=== PATIENT | male | born 1930 | race Caucasian/White ===

== ENCOUNTER 2018-07-24 19:45 | Emergency (ER) | payer MEDICARE ==
[2018-07-24 19:52] VITALS: BP 148/70
--- NOTE | 2018-07-24 19:58 | ED ---
Lower Extremity - HPI Summary HPI Summary: 87 yo male presents to [facility] accompanied by daughter and son in law s/p fall. He tells me that he tripped and fell onto his right knee earlier this evening. He did not hit his head or have LOC. He was able to get to his feet, but has had significant right knee pain since this time. Pain is minimal at rest, but is worse with weight bearing. He was ambulatory without assistance prior to this injury. He is on anticoagulants and family with him today are concerned about this. Pt denies numbness or tingling. - History of Current Complaint Chief Complaint: EDExtremityLower Stated Complaint: FALL, RIGHT KNEE INJURY Time Seen by Provider: 07/24/18 19:58 Hx Obtained From: Patient, Family/Nurse School Mechanism Of Injury: Fall From A Standing Position Severity Initially: Moderate Severity Currently: Moderate Pain Intensity: 7 Pain Scale Used: 0-10 Numeric Timing: Constant - Allergies/Home Medications Allergies/Adverse Reactions: Allergies Allergy/AdvReac Type Severity Reaction Status Date / Time aripiprazole [From Abilify] AdvReac Hallucinati Verified 07/24/18 19:50 ons bupropion [From Wellbutrin] AdvReac Dizziness Verified 07/24/18 19:50 mirtazapine [From Remeron] AdvReac Dizziness Verified 07/24/18 19:50 PMH/Surg Hx/FS Hx/Imm Hx Endocrine/Hematology History: Reports: Hx Anticoagulant Therapy Cardiovascular History: Reports: Hx Hypertension - Surgical History Hx Anesthesia Reactions: No Infectious Disease History: No Infectious Disease History: Denies: Traveled Outside the [place] in Last 30 Days - Family History Known Family History: Positive: Unknown - Social History Occupation: Retired Lives: With Family Alcohol Use: Occasionally Substance Use Type: Reports: None Smoking Status (MU): Never Smoked Tobacco Review of Systems Constitutional: Negative Cardiovascular: Negative Respiratory: Negative Positive: Other - Right knee pain Skin: Negative Neurological: Negative Psychological: Normal All Other Systems Reviewed And Are Negative: Yes Physical Exam - Summary Physical Exam Summary: GENERAL: NAD. WDWN. No pain distress. Sitting comfortably in wheelchair. SKIN: 5mm superficial abrasion overlying lateral right knee. No ecchymosis. CHEST: No accessory muscle use. Breathing comfortably and in no distress. CV: . Pulses intact popliteal, PT, and DP. Cap refill <2seconds MSK: RIGHT KNEE: Mild edema about knee. Mild TTP at tibial plateau. FROM, but pain with active extension. No pain with passive extension. Strength symmetric. No increased laxity. Quad and patellar tendon intact. NEURO: Alert. Sensations intact and symmetric B/L LEs PSYCH: Age appropriate behavior. Triage Information Reviewed: Yes Vital Signs On Initial Exam: Initial Vitals Temp Pulse Resp BP Pulse Ox 97.9 F 54 18 148/70 96 07/24/18 19:50 07/24/18 19:50 07/24/18 19:50 07/24/18 19:50 07/24/18 19:50 Vital Signs Reviewed: Yes Diagnostics - Vital Signs Vital Signs Temp Pulse Resp BP Pulse Ox 07/24/18 19:50 97.9 F 54 18 148/70 96 - Laboratory Lab Statement: Any lab studies that have been ordered have been reviewed, and results considered in the medical decision making process. Lower Extremity Course/Dx - Course Course Of Treatment: XR: No radiologist reading after 1800, therefore wet read by myself is negative for fracture, however there is a questionable transverse deformity on the patella, but this does not appear acute and pt does not have pain here. Discussed with pt and family. Pt was placed in a knee immobilizer and , utilizing a walker, was walked around the ED unit. He was able to accomplish this safely and with minimal pain. Advised to be in knee immobilizer and use walker at all times. Advised to call ED in the morning to obtain official XR report and f/u with Orthopedics if needed. Pt and family voiced understanding and are in agreement with the plan. - Diagnoses Provider Diagnoses: Right knee pain, Fall Discharge - Sign-Out/Discharge Documenting (check all that apply): Patient Departure Patient Received Moderate/Deep Sedation with Procedure: No - Discharge Plan Condition: Stable Disposition: HOME Patient Education Materials: Knee Pain (ED) Referrals: No Primary Care Phys,NOPCP [Primary Care Provider] - Lesly Alex MD [Medical Doctor] - If Needed Additional Instructions: If you develop a fever, shortness of breath, chest pain, new or worsening symptoms - please call your PCP or go to the ED. Your blood pressure was mildly elevated at todays visit. Please see your primary provider within 4 weeks for recheck and re-evaluation. 1) Rest, Ice, and elevate your knee as much as possible 2) The radiologist will review the XR in the morning and we will call you with the report. Currently I have a low suspicion for a fracture. Use the knee immobilizer and use the walker until the official report is determined. - Billing Disposition and Condition Condition: STABLE Disposition: Home
--- NOTE | 2018-07-25 07:46 | PN ---
Progress Note - Progress Note Date of Service: 07/25/18 Note: xray read as IMPRESSION: TRANSVERSE NONDISPLACED INTRA-ARTICULAR FRACTURE OF THE PATELLA. patient was placed in knee immbolizer which is appropriate treatment. called patient and spoke with dr Smith who is patient son and told him of results and that will need to follow up with ortho.
== END 2018-07-24 21:31 | disposition home or self-care (01) ==
LOC: ED 19:45
DX: S82.031A Displaced transverse fracture of right patella, initial encounter for closed fracture (principal); W01.0XXA Fall on same level from slipping, tripping and stumbling without subsequent striking against object, initial encounter; Y92.9 Unspecified place or not applicable; Z79.01 Long term (current) use of anticoagulants; I10 Essential (primary) hypertension
CPT/HCPCS: 99282